=== PATIENT | male | born 1955 | race Hispanic/Latino ===

== ENCOUNTER 2020-07-03 05:30 | Day surgery (SDC) | payer OTHER ==
[2020-07-03] VITALS (7 sets, daily range): BP systolic 112–148; BP diastolic 63–95
[~2020-07-03] VITALS: Ht 165.1 cm; Wt 78.9 kg
[~2020-07-03 05:30] MED LIST: ALBU8.5H8 IH; ALPR0.5T8 PO; AMLO-258 PO; ETAN50CA SQ; FOLI0.8T43 PO; SIMV-46 PO
[2020-07-03] MEDS ORDERED: SODIUM CHLORIDE 0.9% 1000ML 1,000 ML IV ONE (06:23)
[2020-07-03 07:14] LABS: CREATININE 6.3 mg/dL (0.5-1.5); POTASSIUM 4.6 mmol/L (3.5-5.1)
[2020-07-03] MEDS ORDERED: PROPOFOL 10 MG/ML 20ML VIAL IV ONE (07:42)
[2020-07-03] MEDS ORDERED: LIDOCAINE HCL 1% 20 ML VIAL ONE (07:43)
[2020-07-03] MEDS ORDERED: MIDAZOLAM HCL 1 MG/ML 2ML VIAL ONE (07:43)
--- NOTE | 2020-07-03 08:09 | NUR ---
Pt received Pt received via stretcher from GI lab accompanied by RICKIE Cristina. Pt awake but drowsy. Denies any discomfort. VS wnl. O2 via facemask at 10L/min.
--- NOTE | 2020-07-03 08:40 | NUR ---
D/C Pt prepared for discharge. Verbal instructions given to nephew over the phone with details on f/u appt. Copies of written instructions given to pt and reviewed with him. Pt denies any c/o. VS wnl. Pt AAOx4. Pt was then taken to private vehicle via w/c. Nephew awaiting
== END 2020-07-03 08:42 ==
LOC: ENDO 05:30 → DAH 05:30 → ENDO 08:42
PROVIDERS: ATTEND Internal Medicine
DX: R10.12 Left upper quadrant pain (principal); R14.2 Eructation; K21.00 Gastro-esophageal reflux disease with esophagitis, without bleeding; K44.9 Diaphragmatic hernia without obstruction or gangrene; K80.20 Calculus of gallbladder without cholecystitis without obstruction; K64.1 Second degree hemorrhoids; K86.9 Disease of pancreas, unspecified; E11.22 Type 2 diabetes mellitus with diabetic chronic kidney disease; I12.0 Hypertensive chronic kidney disease with stage 5 chronic kidney disease or end stage renal disease; N18.6 End stage renal disease; Z99.2 Dependence on renal dialysis; J44.9 Chronic obstructive pulmonary disease, unspecified; F41.9 Anxiety disorder, unspecified; F32.9 Major depressive disorder, single episode, unspecified; Z79.899 Other long term (current) drug therapy; Z20.828 Contact with and (suspected) exposure to other viral communicable diseases
CPT/HCPCS: 36415 ×2; 43237; 43239; 80048; 93005; A4215; A4221; A4222; A4223; A4606; A4620; A4657 ×2; A4663; C9803; J2250; J2704; J7030; U0003